=== PATIENT | female | born 1965 | race African-American/Black ===

== ENCOUNTER 2024-07-12 11:24 | Inpatient (IN) | payer BC, OTHER ==
--- OUTSIDE RECORDS SUMMARY | 2024-07-12 11:27 | XMS REPORT | Continuity of Care Document ---
Author Name Unknown Address [address] [facility] [address] [place] [address] [facility] [place] Address [address] [facility] [address] [place] [address] Care Team Providers Care Oracle Database Manager Name Role Phone New Gonzáles Attending Clinician Unavailable BRADLEY DEL RIO Attending Clinician Unavailable ANJELICA WRIGHT Attending Clinician Unavailable Payers Payer Name Policy Type Policy Number Effective Date Expirati on Date Source [facility] [id number] 2024 00:00:00 90 Degree Benefits/TSHBP 53 [id number] [facility] Problems Condition Name Condition Details Condition Category Status Onset Date Resolution Date Last Treatment Date Treating Clinician Comments Source [id number] Essential hypertensi on Problem [facility] [id number] Adult ADHD Problem Com mon [facility] [id number] History of allergic reaction Problem [facility] [id number] Moderate episode of recurrent major depressive disorder Problem [facility] Allergies, Adverse Reactions, Alerts Allergy Name Allergy Type Status Severity Reaction(s) Onset Date Inactive Date Treating Clinician Comments Source [id number] Drug allergy Active Unknown [facility] sulfamet hoxazole / trimetho prim sulfamet hoxazole / trimetho prim Active Unknown [facility] Avocado Avocado Active Unknown [facility] Social History Social Habit Start Date Stop Date Quantity Comments Source History of Tobacco Use [facility] Sex Assigned At [facility] Smoking Status Start Date Stop Date Source Unknown if ever smoked Commo n [facility] Never Smoker [facility] Medications Ordered Medication Name Filled Medication Name Start Date Stop Date Current Medication? Ordering Clinician Indication Dosage Frequency Signature (SIG) Comments Components Source Adderall 20 MG Adderall 20 MG 2023-04 0 00:00: 00 No 1{table t} BID Adderall 20 MG EpiPen 2-[place] 0.3 MG/0.3ML EpiPen 2-[place] 0.3 MG/0.3ML 12-03 00:00: 00 No EpiPen 2-[place] 0.3 MG/0.3ML Adderall XR 20 MG Adderall XR 20 MG 07-27 00:00: 00 No 1{capsu le_in_t he_morn ing} BID Adderall XR 20 MG Lisinopril 20 MG Lisinopril 20 MG No 1{table t} QD Lisinopril 20 MG Azithromyci n 250 MG Azithromyci n 250 MG No Azithromyc in 250 MG methylPREDN ISolone 4 MG methylPREDN ISolone 4 MG No 1{table t_with_ food_or _milk} BID methylPRED NISolone 4 MG Fluticasone Propionate 50 MCG/ACT Fluticasone Propionate 50 MCG/ACT No 1{spray _in_eac h_nostr il} QD Fluticason e Propionate 50 MCG/ACT buPROPion HCl 75 MG buPROPion HCl 75 MG No 1{table ts} BID buPROPion HCl 75 MG Vital Signs Vital Name Observation Time Observation Value Comments S earnestine height 2023-12-16 15:40:00 61.5 [in_i] Comm on [facility] weight 2023-12-16 15:40:00 116.0 [lb_av] Co mmon [facility] temperature 2023-12-16 15:40:00 98.2 [degF] Com [facility] bmi 2023-12-16 15:40:00 21.56 kg/m2 Comm on [facility] oximetry 2023-12-16 15:40:00 99 % Commo n [facility] respiratory rate 2023-12-16 15:40:00 16 /min [facility] blood pressure systolic 2023-12-16 15:40:00 158 mm[Hg] Common [facility] blood pressure diastolic 2023-12-16 15:40:00 84 mm[Hg] [facility] blood pressure diastolic 2023-12-04 15:00:00 76 mm[Hg] [facility] height 2023-12-04 15:00:00 61.5 [in_i] Comm on [facility] weight 2023-12-04 15:00:00 113.4 [lb_av] Co mmon [facility] temperature 2023-12-04 15:00:00 97.9 [degF] Com [facility] bmi 2023-12-04 15:00:00 21.08 kg/m2 Comm on [facility] oximetry 2023-12-04 15:00:00 98 % Commo n [facility] respiratory rate 2023-12-04 15:00:00 16 /min [facility] blood pressure systolic 2023-12-04 15:00:00 146 mm[Hg] [facility] height 2023-11-10 09:40:00 61.5 [in_i] Comm on [facility] weight 2023-11-10 09:40:00 115.2 [lb_av] Co [facility] temperature 2023-11-10 09:40:00 97.9 [degF] Com [facility] bmi 2023-11-10 09:40:00 21.41 kg/m2 Comm on [facility] oximetry 2023-11-10 09:40:00 99 % Commo n [facility] respiratory rate 2023-11-10 09:40:00 17 /min Common [facility] blood pressure systolic 2023-11-10 09:40:00 137 mm[Hg] Common [facility] blood pressure diastolic 2023-11-10 09:40:00 73 mm[Hg] Common [facility] height 2023-08-28 15:40:00 61.5 [in_i] Comm on [facility] weight 2023-08-28 15:40:00 110.8 [lb_av] Co mmon [facility] temperature 2023-08-28 15:40:00 98.4 [degF] Com mon [facility] bmi 2023-08-28 15:40:00 20.59 kg/m2 Comm on [facility] oximetry 2023-08-28 15:40:00 100 % Commo n [facility] blood pressure systolic 2023-08-28 15:40:00 138 mm[Hg] Common [facility] blood pressure diastolic 2023-08-28 15:40:00 68 mm[Hg] [facility] height 2023-06-26 16:00:00 61.5 [in_i] Comm on [facility] weight 2023-06-26 16:00:00 110.00 [lb_av] C ommon [facility] temperature 2023-06-26 16:00:00 97.9 [degF] Com mon [facility] bmi 2023-06-26 16:00:00 20.45 kg/m2 Comm on [facility] oximetry 2023-06-26 16:00:00 99 % Commo n [facility] respiratory rate 2023-06-26 16:00:00 16 /min Common [facility] blood pressure systolic 2023-06-26 16:00:00 158 mm[Hg] [facility] blood pressure diastolic 2023-06-26 16:00:00 72 mm[Hg] [facility] Encounters Start Date/Time End Date/Time Encounter Type Admission Type Attending [facility] Care Facility Care Department Encounter ID Source 2023-07-24 08:12:01 Outpatient New Gonzáles STLMLC STLMLC [id number] [facility] 2023-07-04 08:28:01 Outpatient New Gonzáles STLMLC STLMLC [id number] [facility] 2023-06-26 15:51:01 Outpatient New Gonzáles STLMLC STLMLC [id number] [facility] 2024-03-02 09:30:00 2024-03-02 09:30:00 Outpatient BRADLEY DEL RIO [id number] [facility] 2024-02-26 13:50:00 2024-02-26 13:50:00 Outpatient ANJELICA WRIGHT [id number] [facility] 2024-01-20 00:00:00 2024-01-20 00:00:00 (TEL) STLMLC STLMLC [id number] [facility] 2023-12-16 00:00:00 2023-12-16 00:00:00 (ESTPT) Establishe d Patient STLMLC STLMLC [id number] [facility] 2023-12-04 00:00:00 2023-12-04 00:00:00 OFFICE VISIT ESTAB PT LEVEL 3 STLMLC STLMLC [id number] [facility] 2023-12-03 00:00:00 2023-12-03 00:00:00 (TEL) STLMLC STLMLC [id number] [facility] 2023-11-10 00:00:00 2023-11-10 00:00:00 OFFICE VISIT ESTAB PT LEVEL 4 STLMLC STLMLC [id number] [facility] 2023-10-30 00:00:00 2023-10-30 00:00:00 (TEL) STLMLC STLMLC [id number] [facility] 2023-10-17 00:00:00 2023-10-17 00:00:00 (TEL) STLMLC STLMLC [id number] [facility] 2023-10-02 00:00:00 2023-10-02 00:00:00 (TEL) STLMLC STLMLC [id number] [facility] 2023-10-01 00:00:00 2023-10-01 00:00:00 (TEL) STLMLC STLMLC [id number] [facility] 2023-08-28 00:00:00 2023-08-28 00:00:00 OFFICE VISIT ESTAB PT LEVEL 4 STLMLC STLMLC [id number] [facility] 2023-07-01 00:00:00 2023-07-01 00:00:00 (TEL) STLMLC STLMLC [id number] [facility] 2023-06-26 00:00:00 2023-06-26 00:00:00 OFFICE VISIT NEW PT LEVEL 4 STLMLC STLMLC [id number] [facility]
[2024-07-12] MEDS ORDERED: hydroCHLOROthiazide 25 MG TAB ONE (11:59)
[2024-07-12 12:03] LABS: Absolute Lymphocytes (CBC) 1.4 K/uL (0.7-4.9); Absolute Monocytes 0.3 K/uL (0.1-1.3); Absolute Neutrophil 4.5 K/uL (1.8-8.0); Basophils % 0.5 % (0-1.3); Eosinophils % 0.5 % (0-4.4); Hematocrit 38.5 % (36.0-45.0); Hemoglobin 13.1 g/dL (12.0-15.0); Lymphocytes % 21.7 % (15.3-44.8); MCH 30.7 pg (27.0-35.0); MCHC 34.1 g/dL (32.0-36.0); MCV 89.9 fL (80-100); MPV 8.7 fL (7.6-11.3); Monocytes % 5.5 % (3.3-12.3); Neutrophils % 71.8 % (41.7-73.7); Nucleated Red Blood Cells % 0.1 % (0-0); Platelets 284 thou/uL (152-406); RBC Red Blood Cell Count 4.28 M/uL (3.86-4.86); Red Cell Distribution Width 13.1 % (12.1-15.2)
[2024-07-12 12:21] LABS: Anion Gap 5.7 mEq/L (5.0-15.0); Potassium 3.7 mEq/L (3.5-5.1)
[2024-07-12 12:23] LABS: Troponin High Sensitivity 61.9 pg/mL (<58.9)
--- NOTE | 2024-07-12 12:28 | RAD REPORT ---
Procedure: Chest Single View HISTORY: Chest pain COMPARISON: none FINDINGS: The lungs appear clear of acute infiltrate. No significant pleural effusion noted. The heart is normal size. IMPRESSION: No acute abnormality is displayed.
[2024-07-12] MEDS ORDERED: ASPIRIN 81 MG CHEWABLE TABLET ONE (12:34)
--- NOTE | 2024-07-12 13:01 | ER ---
Nurse's Notes [facility] Name: Izabela Diez Age: 59 yrs Sex: Female : 1965 Arrival Date: 07/12/2024 Time: 11:24 Bed 20 Private MD: Diagnosis: Subsequent non-ST elevation (NSTEMI) myocardial infarction Presentation: 07/12 11:32 Chief complaint: EMS states: they were toned out for HTN and left arm pain. pt denies kc6 CP. Coronavirus screen: At this time, the client does not indicate any symptoms associated with coronavirus-19. Ebola Screen: No symptoms or risks identified at this time. Initial Sepsis Screen: Does the patient meet any 2 criteria? No. Patient's initial sepsis screen is negative. Does the patient have a suspected source of infection? No. Patient's initial sepsis screen is negative. Risk Assessment: Do you want to hurt yourself or someone else? Patient reports no desire to harm self or others. Onset of symptoms was July 12, 2024. 11:32 Method Of Arrival: EMS: [facility] kc6 11:32 Acuity: JOSIAH 3 kc6 Historical: - Allergies: 11:33 Bactrim; kc6 11:33 avocado; kc6 11:33 Watermelon; kc6 11:33 oranges; kc6 11:33 OAK DERIVATIVES; kc6 - PMHx: 11:33 Hypertensive disorder; Asthma; ADD/ADHD; Diabetes mellitus; Seizure; Migraine; Kidney kc6 disease; - PSHx: 11:33 section; kc6 - Immunization history:: Adult Immunizations up to date. - Infectious Disease History:: Denies. - Social history:: Smoking status: Patient denies any tobacco usage or history of. Screenin:15 [facility] ED Fall Risk Assessment (Adult) History of falling in the last 3 months, kc6 including since admission No falls in past 3 months (0 pts) Confusion or Disorientation No (0 pts) Intoxicated or Sedated No (0 pts) Impaired Gait No (0 pts) Mobility Assist Device Used No (0 pt) Altered Elimination No (0 pt) Score/Fall Risk Level 0 - 2 = Low Risk Oriented to surroundings, Maintained a safe environment. Abuse screen: Denies threats or abuse. Denies injuries from another. Nutritional screening: No deficits noted. Tuberculosis screening: No symptoms or risk factors identified. Assessment: 12:15 General: Appears in no apparent distress. comfortable, well groomed, well developed, kc6 Behavior is calm, cooperative, appropriate for age. Pain: Complains of pain in left arm. Neuro: Level of Consciousness is awake, alert, obeys commands, Oriented to person, place, time, situation, Appropriate for age. Cardiovascular: Denies chest pain, Heart tones S1 S2 present Capillary refill < 3 seconds Rhythm is regular. Respiratory: Airway is patent Trachea midline Respiratory effort is even, unlabored, Respiratory pattern is regular, symmetrical. Derm: No signs and/or symptoms reported regarding the dermatologic system. Skin is intact, is healthy with good turgor, Skin is pink, warm \T\ dry. 12:26 Reassessment: Patient appears in no apparent distress at this time. Patient and/or kj2 family updated on plan of care and expected duration. Pain level reassessed. Patient is alert, oriented x 3, equal unlabored respirations, skin warm/dry/pink. 13:28 Reassessment: Patient appears in no apparent distress at this time. Patient and/or kj2 family updated on plan of care and expected duration. Pain level reassessed. Patient is alert, oriented x 3, equal unlabored respirations, skin warm/dry/pink. 14:38 Reassessment: Patient appears in no apparent distress at this time. Patient and/or kj2 family updated on plan of care and expected duration. Pain level reassessed. Patient is alert, oriented x 3, equal unlabored respirations, skin warm/dry/pink. Vital Signs: 11:32 BP 194 / 86; Pulse 60; Resp 15 S; Temp 98(O); Pulse Ox 96% on R/A; Weight 49.9 kg (R); kc6 Height 5 ft. 1 in. (R); 12:20 BP 179 / 90; Pulse 55; Resp 20; Pulse Ox 100% ; kj2 14:38 BP 170 / 75; Pulse 56; Resp 20; Pulse Ox 100% on R/A; kj2 11:32 Body Mass Index 20.78 (49.90 kg, 154.94 cm) [facility] ED Course: 11:31 Patient arrived in ED. dr5 11:31 Marcus Ngo FNP-C [facility]. dr5 11:31 Juaquin Caceres MD is Attending Physician. dr5 11:32 Yola Ibanez, RN is Primary Nurse. kc6 11:33 Triage completed. kc6 11:33 Arm band placed on. kc6 11:55 Inserted saline lock: 20 gauge in left antecubital area, using aseptic technique. Blood kc6 collected. Flushed with 10 mL NS 12:15 Patient has correct armband on for positive identification. Bed in low position. Call kc6 light in reach. Side rails up X 1. NIBP on. Sitter at bedside. Door closed. Noise minimized. Moved to private room. Pillow given. Verbal reassurance given. 12:15 Patient maintains SpO2 saturation greater than 95% on room air. kc6 12:16 Report given to NONA OLVERA RN. kc6 12:21 XRAY Chest (1 view) In Process Unspecified. EDMS 13:00 Don Clark PA is Hospitalizing Provider. dr5 Administered Medications: 12:06 Drug: Hydrochlorothiazide PO 12.5 mg PO once Route: PO; kc6 12:31 Follow up: Response: No adverse reaction kj2 12:37 Drug: Aspirin PO Chewable Tablet 324 mg PO once; 81 mg tablets x 4 Route: PO; kj2 13:28 Follow up: Response: No adverse reaction kj2 Outcome: 13:00 Decision to Hospitalize by Provider. dr5 15:58 Patient left the ED. kj2 Signatures: Dispatcher [employer] EDRI Yola Ibanez, RN RN kc6 Nona Olvera RN RN kj2 Marcus Ngo, CH[facility] MUCKER-C [facility]5
--- NOTE | 2024-07-12 13:01 | EDPHYS ---
Physician Documentation [facility] Name: Izabela Diez Age: 59 yrs Sex: Female : 1965 Arrival Date: 07/12/2024 Time: 11:24 Bed 20 Private MD: ED Physician Juaquin Caceres HPI: 07/12 11:33 This 59 yrs old Black Female presents to ER via EMS with complaints of High Blood dr5 Pressure. 11:33 Onset: The symptoms/episode began/occurred acutely. Patient is a 59-year-old female dr5 with history of high blood pressure, anxiety, and ADD coming in with chest pressure and left arm pain that started this morning. Patient took 20mg of Lisinopril as prescribed this morning at 0900. Patient denies previous cardiac issues and doesn't report any chest pain or pressure on arrival. Pt denies cough, congestion, abdominal pain, nausea, vomiting, or diarrhea.. Historical: - Allergies: 11:33 Bactrim; kc6 11:33 avocado; kc6 11:33 Watermelon; kc6 11:33 oranges; kc6 11:33 OAK DERIVATIVES; kc6 - PMHx: 11:33 Hypertensive disorder; Asthma; ADD/ADHD; Diabetes mellitus; Seizure; Migraine; Kidney kc6 disease; - PSHx: 11:33 section; kc6 - Immunization history:: Adult Immunizations up to date. - Infectious Disease History:: Denies. - Social history:: Smoking status: Patient denies any tobacco usage or history of. ROS: 11:34 Constitutional: as per hpi dr5 Exam: 13:03 Constitutional: This is a well developed, well nourished patient who is awake, alert, dr5 and in no acute distress. Head/Face: Normocephalic, atraumatic. ENT: Nares patent. No nasal discharge, no septal abnormalities noted. Tympanic membranes are normal and external auditory canals are clear. Oropharynx with no redness, swelling, or masses, exudates, or evidence of obstruction, uvula midline. Mucous membranes moist. Neck: Trachea midline, no thyromegaly or masses palpated, and no cervical lymphadenopathy. Supple, full range of motion without nuchal rigidity, or vertebral point tenderness. No Meningismus. Chest/axilla: Normal chest wall appearance and motion. Nontender with no deformity. No lesions are appreciated. Cardiovascular: Regular rate and rhythm with a normal S1 and S2. Normal PMI, no JVD. No pulse deficits. Respiratory: Lungs have equal breath sounds bilaterally, clear to auscultation. No rales, rhonchi or wheezes noted. No increased work of breathing, no retractions or nasal flaring. Back: No spinal tenderness. No costovertebral tenderness. Full range of motion. Skin: Warm, dry with normal turgor. Normal color with no rashes, no lesions, and no evidence of cellulitis. Neuro: Awake and alert, GCS 15, oriented to person, place, time, and situation. Cranial nerves II-XII grossly intact. Motor strength 5/5 in all extremities. Sensory grossly intact. Cerebellar exam normal. Normal gait. Vital Signs: 11:32 BP 194 / 86; Pulse 60; Resp 15 S; Temp 98(O); Pulse Ox 96% on R/A; Weight 49.9 kg (R); kc6 Height 5 ft. 1 in. (R); 12:20 BP 179 / 90; Pulse 55; Resp 20; Pulse Ox 100% ; kj2 14:38 BP 170 / 75; Pulse 56; Resp 20; Pulse Ox 100% on R/A; kj2 11:32 Body Mass Index 20.78 (49.90 kg, 154.94 cm) kc6 MDM: 11:32 Medical Screening Exam initiated dr5 13:01 Differential diagnosis: hypertensive crisis, STEMI, NSTEMI. Data interpreted: Cardiac dr5 monitor: Pulse oximetry:. Data reviewed: vital signs, nurses notes, lab test result(s), radiologic studies, plain films. Consideration of Admission/Observation Patient was admitted/placed on observation. Care significantly affected by the following chronic conditions: Hypertension, Asthma, DM, Seizure, Migraine, Kidney Disease. Care significantly affected by the following Social Determinants of Health: Poor access to healthcare and/or lack of insurance, Poor access to transportation, Problems related to employment. Scoring Tools HEART Score: History: ECG: Age: Risk Factors: 1 or 2 risk factors (1), Troponin: Total Score = 4. Counseling: I had a detailed discussion with the patient and/or guardian regarding the historical points, exam findings, and any diagnostic results supporting the discharge/admit diagnosis, the presence of at least one elevated blood pressure reading (>120/80) during this emergency department visit, lab results, radiology results, the need for further work-up and treatment in the hospital. ED course: Consulted with Dr. Summers and will admit to hospital for ACS workup. Patient informed of decision and is agreeable to plan. Patient denies chest pain at this time.. 07/12 11:32 Order name: Basic Metabolic Panel; Complete Time: 12:[address] [facility] 07/12 11:32 Order name: CBC with Diff; Complete Time: 12:[address] [facility] 07/12 11:32 Order name: Troponin HS; Complete Time: 12: [facility] 07/12 14:15 Order name: Troponin High Sensitivity [facility] 07/12 11:32 Order name: XRAY Chest (1 view); Complete Time: 12:[address] [facility] 07/12 14:21 Order name: Echo with Doppler [facility] 07/12 11:32 Order name: Cardiac monitoring; Complete Time: 12:[address] [facility] 07/12 11:32 Order name: EKG - Nurse/Tech; Complete Time: 12: [facility] 07/12 11:32 Order name: IV Saline Lock; Complete Time: 11:[address] [facility] 07/12 11:32 Order name: Labs collected and sent; Complete Time: 11:[address] [facility] 07/12 11:32 Order name: O2 Per Protocol; Complete Time: 11: [facility] 07/12 11:32 Order name: O2 Sat Monitoring; Complete Time: 11:57 dr5 EC:05 Rate is 52 beats/min. Rhythm is regular. QRS Worden is Normal. ID interval is normal at dr5 124 msec. QRS interval is normal at 96 msec. Administered Medications: 12:06 Drug: Hydrochlorothiazide PO 12.5 mg PO once Route: PO; kc6 12:31 Follow up: Response: No adverse reaction kj2 12:37 Drug: Aspirin PO Chewable Tablet 324 mg PO once; 81 mg tablets x 4 Route: PO; kj2 13:28 Follow up: Response: No adverse reaction kj2 Disposition Summary: 07/12/24 13:00 Hospitalization Ordered Notes: Hospitalization Status: Inpatient Admission dr5 Provider: Don Clark dr5 Location: Telemetry/MedSurg (observation) dr5 Condition: Stable dr5 Problem: new dr5 Symptoms: are unchanged dr5 Bed/Room Type: Standard dr5 Room Assignment: 228(07/12/24 14:24) kb3 Diagnosis - Subsequent non-ST elevation (NSTEMI) myocardial infarction dr5 Forms: - Medication Reconciliation Form dr5 - SBAR form dr5 - Leadership Thank You Letter dr5 Addendum: 07/14/2024 14:44 I was immediately available for consultation during this patient's visit. I did not e c2 personally see the patient or discuss the patient with the JHOAN. . Signatures: Dispatcher [employer] Yola Oviedo RN RN kc6 Alicia Marin RN RN kb3 Juaquin Caceres MD MD ec2 Nona Olvera RN RN kj2 Marcus Ngo, RN TELEPHONIC-C RN TELEPHONIC-Cdr5 Corrections: (The following items were deleted from the chart) 07/12 14:24 13:00 dr5 kb3
[2024-07-12] MEDS ORDERED: ONDANSETRON 4 MG/2 ML VIAL IV PRN (14:14)
[2024-07-12] MEDS ORDERED: LORAZEPAM 0.5 MG TABLET PO PRN (14:20)
--- NOTE | 2024-07-12 14:27 | P.HP ---
Certification for Inpatient With expected LOS: >2 Midnights Patient will require the following post-hospital care: None Practitioner: I am a practitioner with admitting privileges, knowledge of patient current condition, hospital course, and medical plan of care. Services: Services provided to patient in accordance with Admission requirements found in Title 42 Section 412.3 of the Code of Federal Regulations Patient History Date of Service: 07/12/24 Reason for admission: High blood pressure, elevated troponin History of Present Illness: 59-year-old patient presented with high blood pressure and left arm pain, she was feeling stressed out at work, she checked the blood pressure, it was in 190s, she also felt left arm pain so she presented to the emergency room, she was found to have elevated troponin so we were asked to admit her. Her left arm pain is gone now. Other than this she denies any other acute complaints. No headache or blackouts. has chronic vision issues, better with glasses. No cough or sputum production. No chest pain or shortness of breath. No nausea or vomiting. No abdominal pain. No constipation or diarrhea. No blood in the urine or stool. No fever. No lower extremity edema. No joint pains. No recent change in the weight. Review of systems: All other 10 point review of systems are negative other than as mentioned above. Allergies and medications: Reviewed, as per med rec EMR. Past medical history: Hypertension, anxiety, ADHD Past surgical history: Social history: No smoking or alcohol or drugs Family history: Dad had history of CO and CVA Physical examination: Vital signs: Reviewed, as per EMR. Noted high BP General appearance: Alert and comfortable HEENT: Extraocular movements intact, oral mucosa moist. CVS: Normal S1-S2 Lungs: Clear to auscultation bilaterally Abdomen: Soft, bowel sounds present, no tenderness Extremities: No lower extremity edema BARREL BURNER: Moves all 4 extremities, no obvious focal deficits Musculoskeletal: No obvious joint swelling or tenderness Physical Examination - Studies Laboratory Data (last 24 hrs) 07/12/24 07/12/24 11:54 11:54 WBC 6.30 Hgb 13.1 Hct 38.5 Plt Count 284 Sodium 137 Potassium 3.7 BUN 9 Creatinine 0.76 Glucose 93 Assessment and Plan - Plan 1. Hypertensive urgency, elevated troponin: I think elevated troponin is probably from poorly controlled blood pressure, doubt NSTEMI, will repeat troponins, get echocardiogram, discussed with cardiology, cardiology consult requested, further plan depending on repeat troponin level. -hold Heparin drip for now. -She takes lisinopril at home, will resume same, as needed hydralazine for now, monitor blood pressure closely. Will check hemoglobin A1c and lipid panel in the morning. -Aspirin and statin for now. 2. ADHD and anxiety: Continue home medications. CT prophylaxis: Lovenox CODE STATUS: She would like to be full code. I discussed advanced directives with the patient, she does not have any power of defense attorney, she is not interested to consider one at this time. - Advance Directives Does patient have a Living Will: No Does patient have a Durable POA for Healthcare: No
[2024-07-12] MEDS: lisinopriL 20 MG TAB PO SCH (15:00)
[2024-07-12 16:36] VITALS: O2SAT 100
[2024-07-12] MEDS: HYDRALAZINE HCL 20 MG/ML VIAL IV PRN (17:33)
[2024-07-12 17:52] VITALS: BMI 20.7
[2024-07-12] MEDS: ATORVASTATIN 40 MG TAB PO SCH (21:16)
[2024-07-13] MEDS: ASPIRIN EC 81 MG TAB PO SCH (08:34)
[2024-07-13] MEDS: ENOXAPARIN 40 MG/0.4 ML SQ SCH (08:35)
[2024-07-13] MEDS: ACETAMINOPHEN 500 MG TAB PO PRN (08:50)
--- NOTE | 2024-07-13 11:52 | ECHO ---
HEIGHT: 5 ft 1 in WEIGHT: 110 lb 0 oz DATE OF STUDY: 07/13/[address]: Don Clark 2-DIMENSIONAL: YES M.MODE: YES DOPPLER: YES COLOR FLOW: YES TDS: PORTABLE: YES DEFINITY: BUBBLE STUDY: DIAGNOSIS: CONGESTIVE HEART FAILURE, ELEVATED TROPONIN CARDIAC HISTORY: CATHERIZATION: NO SURGERY: NO PROSTHETIC VALVE: NO PACEMAKER: NO MEASUREMENTS (cm) DIASTOLIC (NORMALS) SYSTOLIC (NORMALS) IVSd 1.0 (0.6-1.2) LA Diam 2.4 (1.9-4.0) LVEF 60-65% LVIDd 3.8 (3.5-5.7) LVIDs 2.5 (2.0-3.5) %FS 33% LVPWd 1.0 (0.6-1.2) Ao Diam 2.7 (2.0-3.7) 2 DIMENSIONAL ASSESSMENT: RIGHT ATRIUM: NORMAL LEFT ATRIUM: NORMAL RIGHT VENTRICLE: NORMAL LEFT VENTRICLE: NORMAL TRICUSPID VALVE: NORMAL MITRAL VALVE: NORMAL PULMONIC VALVE: NORMAL AORTIC VALVE: NORMAL PERICARDIAL EFFUSION: NONE AORTIC ROOT: NORMAL LEFT VENTRICULAR WALL MOTION: NORMAL DOPPLER/COLOR FLOW: NORMAL COMMENTS: 1. NORMAL LEFT VENTRICULAR SYSTOLIC FUNCTION, EJECTION FRACTION 60-65%, NORMAL WALL MOTION 2. NORMAL DIASTOLIC FUNCTION TECHNOLOGIST: KHADIJAH HERNANDEZ
--- NOTE | 2024-07-13 12:52 | P.CNS ---
Date of Consult: 07/13/24 Chief Complaint: High blood pressure, elevated troponin History of Present Illness: Patient with PMH of HTN, presented with high BP and left arm pain that lasted for few minutes, she denies any other cardiac symptoms, she report having lot of stress at work. Allergies avocado Allergy (Unknown, Verified 07/12/24 23:47) UNKNOWN orange Allergy (Unknown, Verified 07/12/24 23:47) UNKNOWN sulfamethoxazole [From Bactrim] Allergy (Unknown, Verified 07/12/24 23:47) UNKNOWN trimethoprim [From Bactrim] Allergy (Unknown, Verified 07/12/24 23:47) UNKNOWN watermelon Allergy (Unknown, Verified 07/12/24 23:47) UNKNOWN oak Adverse Reaction (Unknown, Verified 07/12/24 23:47) UNKNOWN Home medications list reviewed: Yes Home Medications: Dextroamphetamine/Amphetamine [Adderall 10 mg Tablet] 25 PO DAILY 07/12/24 lisinopriL [Prinivil*] 20 PO DAILY 07/12/24 - Past Medical/Surgical History Diabetic: No - Social History Alcohol use: No CD- Drugs: No Caffeine use: Yes Place of Residence: Home Review of Systems 10-point ROS is otherwise unremarkable Physical Examination Temp Pulse Resp BP Pulse Ox 98.4 F 74 12 127/73 99 07/13/24 12:00 07/13/24 12:00 07/13/24 12:00 07/13/24 12:00 07/13/24 12:00 General: Alert, In no apparent distress HEENT: Atraumatic, PERRLA, Mucous membr. moist/pink, EOMI, Sclerae nonicteric Neck: Supple, 2+ carotid pulse no bruit, No LAD, Without JVD or thyroid abnormality Respiratory: Clear to auscultation bilaterally, Normal air movement Cardiovascular: Regular rate/rhythm, Normal S1 S2 Gastrointestinal: Normal bowel sounds, No tenderness Musculoskeletal: No tenderness Integumentary: No rashes Neurological: Normal gait, Normal speech, Normal tone, Normal affect Lymphatics: No axilla or inguinal lymphadenopathy - Problems (1) Type 2 MT (myocardial infarction) Current Visit: Yes Status: Acute Plan: Enzymes are mild elevated with no significant delta, EKG no significant ST-T wave changes. Echo shows normal systolic and diastolic function no further inpatient cardiac work up needed outpatient follow up with cardiology for possible stress test continue ASA and lipitor (2) HTN (hypertension) Current Visit: Yes Status: Acute Plan: BP is better controlled, continue Lisinopril 40 mg daily
--- NOTE | 2024-07-13 15:17 | P.DS ---
Admission Date: 07/12/24 Discharge Date: 07/13/24 Disposition: ROUTINE DISCHARGE Discharge Condition: GOOD Reason for Admission: High blood pressure, elevated troponin Hospital Course: 1. Hypertensive urgency, elevated troponin, type 2 FL: elevated troponin is probably from poorly controlled blood pressure, - echocardiogram showed 60 to 65% EF -Cardiology recommending aspirin and statin, continue lisinopril. -Consider outpatient stress test. 2. ADHD and anxiety: Continue home medications. 59-year-old patient presented with high blood pressure and right arm pain, troponin was mildly elevated, it was felt to be related to uncontrolled hypertension, cardiology was consulted, she had an echocardiogram which showed normal ejection fraction, cardiology evaluated her today, they feel it is type II FL, they are okay to discharge her to go home on aspirin and statin, follow- up as an outpatient for stress test. When I see the patient today she is doing well without any acute problems, she denies any chest pain, no pain in the left arm, she feels ready to go home, otherwise no other acute issues going on so I am planning to discharge her to go home. Subjective: No chest pain or shortness of breath. No nausea or vomiting. No abdominal pain. No obvious bleeding. Looks comfortable in the bed. Objective: General appearance: Alert and comfortable CVS: Normal S1 and S2 Lungs: Clear to auscultation bilaterally Abdomen: Soft, bowel sounds present, no tenderness Extremities: No lower extremity edema Vital Signs/Physical Exam: Temp Pulse Resp BP Pulse Ox 98.4 F 74 12 127/73 99 07/13/24 12:00 07/13/24 12:00 07/13/24 12:00 07/13/24 12:00 07/13/24 12:00 Laboratory Data at Discharge: WBC 6.30 thou/uL (4.3-10.9) 07/12/24 11:54 Hgb 13.1 g/dL (12.0-15.0) 07/12/24 11:54 Hct 38.5 % (36.0-45.0) 07/12/24 11:54 Plt Count 284 thou/uL (152-406) 07/12/24 11:54 Sodium 137 mEq/L (136-145) 07/12/24 11:54 Potassium 3.7 mEq/L (3.5-5.1) 07/12/24 11:54 BUN 9 mg/dL (7-18) 07/12/24 11:54 Creatinine 0.76 mg/dL (0.55-1.02) 07/12/24 11:54 Glucose 93 mg/dL (74-106) 07/12/24 11:54 Triglycerides 37 mg/dL (<150) 07/13/24 04:34 Cholesterol 205 mg/dL (<200) H 07/13/24 04:34 HDL Cholesterol 78 mg/dL (40-60) H 07/13/24 04:34 Cholesterol/HDL Ratio 2.63 07/13/24 04:34 Home Medications: Dextroamphetamine/Amphetamine [Adderall 10 mg Tablet] 25 PO DAILY 07/12/24 Aspirin [Aspirin EC 81 MG] 81 mg PO DAILY #30 07/13/24 Atorvastatin Calcium [Lipitor] 40 mg PO BEDTIME #30 tab 07/13/24 lisinopriL [Prinivil*] 20 mg PO BID #60 tab 07/13/24 New Medications: Aspirin [Aspirin EC 81 MG] 81 mg PO DAILY #30 Atorvastatin Calcium [Lipitor] 40 mg PO BEDTIME #30 tab lisinopriL [Prinivil*] 20 mg PO BID #60 tab Diet: AHA Activity: Ad jillian Followup: Corby Summers MD [ACTIVE - CAN ADMIT] - 1 Week (f/u in 1-2 weeks, may need stress test) Jason Hagen DO [Primary Care Provider] - 1 Week (f/u with PCP in 1 week with CBC and CMP)
[2024-07-13 17:07] VITALS: BP 117/67; TEMP 100
--- NOTE | 2024-07-15 08:49 | EKG ---
Test Date: 2024-07-12 Test Time: 12:05:11 Student Loan Counselor: TAMI MEASUREMENT RESULTS: Intervals: Rate: 52 MO: 124 QRSD: 96 QT: 436 QTc: 405 [place]: P: 67 MO: 124 QRS: 84 T: 65 INTERPRETIVE STATEMENTS: Sinus bradycardia Minimal voltage criteria for LVH, may be normal variant Anterior infarct, age undetermined Abnormal ECG No previous ECG available for comparison Electronically Signed On 07-15-24 08:40:46 CDT by Corby Summers
== END 2024-07-13 17:11 | disposition home or self-care (01) | DRG 282 ==
LOC: ER 11:24 → ERHOLD 14:14 → 2ND 15:32
PROVIDERS: ADMIT Hospitalist; ATTEND Hospitalist
DX: I16.0 Hypertensive urgency (principal); I21.A1 Myocardial infarction type 2; I10 Essential (primary) hypertension; F41.9 Anxiety disorder, unspecified; F90.9 Attention-deficit hyperactivity disorder, unspecified type; R79.89 Other specified abnormal findings of blood chemistry
CPT/HCPCS: 36415; 71045; 80048; 80061; 83036; 84484; 85025; 93005; 93306; 99284; G0378; J0360; J1650